=== PATIENT | female | born 1930 | race Caucasian/White ===

== ENCOUNTER 2017-10-15 04:23 | Inpatient (IN) ==
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
--- NOTE | 2017-10-15 06:00 | DI ---
EXAM: XR Left Shoulder Complete, 2 or More Views CLINICAL HISTORY: Physician Notes: Tech Comments: TECHNIQUE: Two or more views of the left shoulder. COMPARISON: No relevant prior studies available. FINDINGS: Limitations: Limited study due to body habitus. Bones/joints: Cortical irregularity in the posterior lateral margin of the left humeral neck suspicious for fracture. No dislocation is identified. Degenerative changes are seen about the acromioclavicular joint. Small calcific/ossific density projecting over the lateral scapula near the glenoid which may represent bone island or overlying soft tissue calcification. Diffuse demineralization of the bones Soft tissues: Unremarkable. IMPRESSION: Suspect fracture of the left humeral neck. Degenerative change. Osteopenia Critical Value Communications 10/15/17 06:12 Verify Receipt Verified receipt with JONNY Cormier in the ER for Dr. Mistry on 10/15 06:10 (-07:00)
[2017-10-15] MEDS ORDERED: Sodium Chloride 0.9% 1,000 ML PRIMARY IV ONE ×2 (06:14→08:38)
[2017-10-15] MEDS ORDERED: KETOROLAC 15 MG/1 ML VIAL IVP ONE (06:14)
[2017-10-15] MEDS ORDERED: INSULIN REGULAR, HUMAN 100 UNIT/1 ML - 3 ML SUBCUT ONE (06:14)
[2017-10-15 06:30] LABS: BLOOD UREA NITROGEN 77 mg/dL (7-22); BUN/CREATININE RATIO 24.06 (6-20); MAGNESIUM 1.8 mg/dL (1.6-2.4); SERUM ALBUMIN 3.5 g/dL (3.5-4.8)
[2017-10-15 06:39] LABS: Hematocrit [HCT] 31.9 % (37.0-47.0); Hemoglobin [HGB] 10.4 g/dL (12.0-16.0); RED BLOOD COUNT 3.35 10^6/uL (4.20-5.40)
[2017-10-15 06:40] LABS: BASOPHILS # (AUTO) 0.06 10*3/UL; BASOPHILS % (AUTO) 0.5 % (0-1); EOSINOPHILS # (AUTO) 0.17 10*3/UL; EOSINOPHILS % (AUTO) 1.5 % (0-8); LYMPHOCYTES # (AUTO) 1.85 10*3/uL; MEAN CORPUSCULAR HEMOGLOBIN 30.9 PG (27-31); MEAN CORPUSCULAR HGB CONC 32.4 g/dL (33-37); MEAN CORPUSCULAR VOLUME 95 FL (81-99); MEAN PLATELET VOLUME 8.1 FL (7.4-12.2); MONOCYTES % (AUTO) 6.9 % (5-15); NEUTROPHILS # (AUTO) 8.68 10*3/UL; NEUTROPHILS % (AUTO) 75.1 % (50-80)
[2017-10-15 06:41] LABS: PLATELET MORPHOLOGY COMMENT NORMAL MORPHOLOGY (NORM); RBC MORPHOLOGY COMMENT SEE COMMENTS (NORM); WBC MORPHOLOGY COMMENT NORMAL MORPHOLOGY (NORM)
[2017-10-15] MEDS ORDERED: LIDOCAINE HCL 2 % 10 ML JELLY URO-JECT TOPICAL PRN ×2 (07:46→08:38)
--- NOTE | 2017-10-15 07:52 | DI ---
EXAM: CT Head Without Intravenous Contrast CLINICAL HISTORY: Physician Notes: Tech Comments: TECHNIQUE: Axial computed tomography images of the head/brain without intravenous contrast. COMPARISON: No relevant prior studies available. FINDINGS: Brain: No acute hemorrhage or mass effect. Focal encephalomalacia in the right parieto-occipital lobe, likely chronic. Focal encephalomalacia in the left occipital lobe, likely chronic infarct. Mild periventricular low density likely chronic small vessel ischemic change. No edema. Midline shift: No midline shift. Ventricles: Diffuse atrophy and compensatory dilatation of the lateral ventricles. Bones/joints: Unremarkable. No acute fracture. Soft tissues: Unremarkable. Sinuses: Mild mucosal thickening in the ethmoid sinuses. Small air- fluid level in the right sphenoid sinus. Mastoid air cells: Unremarkable as visualized. No mastoid effusion. IMPRESSION: No acute intracranial hemorrhage, mass effect or midline shift. Chronic infarcts as described bilaterally. Atrophy and chronic small vessel ischemic change.
--- NOTE | 2017-10-15 07:58 | DI ---
EXAM: CT Cervical Spine Without Intravenous Contrast CLINICAL HISTORY: Physician Notes: Tech Comments: TECHNIQUE: Axial computed tomography images of the cervical spine without intravenous contrast. COMPARISON: No relevant prior studies available. FINDINGS: Vertebrae: No acute fracture or subluxation. Disc space narrowing with degenerative endplate changes at multiple levels and marginal osteophyte formation. Discs/spinal canal/neural foramina: No acute findings. No spinal canal stenosis. Soft tissues: No prevertebral soft tissue abnormality. Lung apices: Unremarkable as visualized. Other findings: IMPRESSION: No acute bony abnormality. Multilevel degenerative disc disease.
--- NOTE | 2017-10-15 08:14 | DI ---
EXAM: CT Chest Without Intravenous Contrast CLINICAL HISTORY: Fall. TECHNIQUE: Axial computed tomography images of the chest without intravenous contrast. COMPARISON: May 15, 2014. FINDINGS: Artifacts: Artifactual degradation of exam due to patient's inability to move arm. Lungs: Patchy groundglass densities and thickening of interlobular septa consistent with vascular congestion/edema. Patchy areas of atelectasis. No focal consolidative process. Pleural space: Small bilateral pleural effusions. No pneumothorax. Heart: Cardiomegaly. Trace pericardial fluid. Mediastinum: Small hiatal hernia. Bones/joints: Acute appearing left humeral head/neck fracture. Degenerative changes in thoracic spine. No dislocation. Soft tissues: Unremarkable. Vasculature: Normal caliber thoracic aorta with atherosclerotic disease. Coronary artery calcifications. Lymph nodes: Subcentimeter mediastinal lymph nodes. IMPRESSION: Acute left humeral head/neck fracture without dislocation. Findings suggestive of vascular congestion/edema and small bilateral pleural effusions. No focal consolidative process. Cardiomegaly. Small pericardial effusion.
[2017-10-15 08:25] LABS: BILIRUBIN,URINE NEGATIVE (NEG); CLARITY,URINE CLOUDY (CLEAR); COLOR,URINE YELLOW (Y); GLUCOSE, URINE (UA) NEGATIVE (NEG); NITRATE,URINE NEGATIVE (NEG); OCCULT BLOOD,URINE MODERATE (NEG); PROTEIN,URINE 100 mg/dl (NEG); UROBILINOGEN,URINE 0.2 EU/dL (0.2)
[2017-10-15 08:35] LABS: BACTERIA,URINE MANY; URINE SAMPLE TYPE CATH SPECIMEN; WBC,URINE >100
[2017-10-15] MEDS ORDERED: NORMAL SALINE 10 ML SYRINGE FLUSH IVP PRN (08:38)
[2017-10-15] MEDS ORDERED: LIDOCAINE W/ SODIUM BICARB 0.5 ML SYR SUBD PRN (08:38)
[2017-10-15] MEDS ORDERED: ONDANSETRON 4 MG/2 ML VIAL IVP PRN (08:38)
[2017-10-15] MEDS ORDERED: DOCUSATE 100 MG CAPSULE PO PRN (08:38)
[2017-10-15] MEDS ORDERED: CALCIUM CARBONATE 500 MG (TUMS) CHEWABLE TABLET PO PRN (08:38)
[2017-10-15] MEDS ORDERED: ACETAMINOPHEN 325 MG TABLET PO PRN (08:38)
[2017-10-15] MEDS ORDERED: HYDROcodone-APAP 5 MG -325 MG TABLET PO PRN (08:38)
[2017-10-15] MEDS ORDERED: Insulin Detemir 300unit/3ml Flexpen SUBCUT SCH ×2 (09:00→13:21)
[2017-10-15] MEDS ORDERED: LABETALOL 100 MG TABLET PO SCH (09:00)
[2017-10-15] MEDS ORDERED: HEPARIN 5000 UNIT/1 ML SUBCUT SCH (09:00)
[2017-10-15] MEDS: Sodium Chloride 0.9% 1,000 ML PRIMARY IV SCH ×2 (10:13→17:58)
[2017-10-15] MEDS: ACETAMINOPHEN 500 MG TABLET PO SCH ×2 (11:21→21:18)
[2017-10-15] MEDS: HYDROmorphone 2 MG/1 ML IVP PRN ×2 (13:10→17:05)
[2017-10-15 16:03] VITALS: BP 122/64; TEMP 97.8; O2SAT 90
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
[2017-10-15 18:20] LABS: BLOOD UREA NITROGEN 78 mg/dL (7-22); BUN/CREATININE RATIO 22.94 (6-20)
[2017-10-15] MEDS ORDERED: Morphine Syringe 300mg/30ml 300 MG/30 ML PCA.SYRING IV SCH (19:45)
[2017-10-16 09:42] VITALS: RESP 14
--- NOTE | 2017-10-16 14:30 | DCSUMMARY ---
Hospitalization Summary Admit Date: 10/15/2017 Discharge Date: 10/16/17 Primary Diagnosis:: Renal Failure, acute Hospital Course: This is an 86 YO female that was [facility] and had a humeral fracture. She was found to be in acute renal failure, hyperkalemia, and oliguric. She had clear failure to thrive and multiple, end stage disease, including dementia, diabetes, high blood pressure, amongst other medical issues. She was clearly in pain, at on an stage of her disease processes and with her power of child protective services social worker, Angela, her sister, we made the decision to stop aggressive medical care and proceed with treatment of primary symptoms. It was known for well that she would of complications of kidney disease, urinary tract infection, dementia, hypertension, diabetes, and high blood pressure. She was placed on morphine for primary control of pain, and she passed at 12:34 PM on 10/16/2017. Exam - Vitals Vital Signs: There are no spontaneous respirations and the patient is unresponsive. Patient Problems - Patient Problem List (1) Acute renal failure Current Visit: Yes Status: Acute Code(s): N17.9 - Acute kidney failure, unspecified Qualifiers: Acute renal failure type: unspecified Qualified Code(s): N17.9 - Acute kidney failure, unspecified Category: Medical (2) Altered mental status Current Visit: Yes Status: Acute Code(s): R41.82 - Altered mental status, unspecified Category: Medical (3) UTI (urinary tract infection) Current Visit: Yes Status: Acute Code(s): N39.0 - Urinary tract infection, site not specified Qualifiers: Urinary tract infection type: acute cystitis Hematuria presence: with hematuria Qualified Code(s): N30.01 - Acute cystitis with hematuria Category: Medical (4) History of CVA (cerebrovascular accident) Current Visit: Yes Status: Acute Code(s): Z86.73 - Personal history of transient ischemic attack (TIA), and cerebral infarction without residual deficits Category: Medical (5) Failure to thrive Current Visit: Yes Status: Acute Qualifiers: Failure to thrive age range: in adult Qualified Code(s): R62.7 - Adult failure to thrive Category: Medical (6) DMII (diabetes mellitus, type 2) Current Visit: Yes Status: Acute Code(s): E11.9 - Type 2 diabetes mellitus without complications Qualifiers: Diabetes mellitus complication status: with hypoglycemia Diabetes mellitus complication detail: without coma Diabetes mellitus detention insulin use: with neurological surgery teacher use Qualified Code(s): E11.649 - Type 2 diabetes mellitus with hypoglycemia without coma; Z79.4 - penitentiary (current) use of insulin; Z79.4 - penitentiary (current) use of insulin; Z79.4 - penitentiary (current) use of insulin; Z79.4 - penitentiary (current) use of insulin Category: Medical (7) Fracture of humerus, left, closed Current Visit: Yes Status: Acute Code(s): S42.302A - Unspecified fracture of shaft of humerus, left arm, initial encounter for closed fracture Qualifiers: Encounter type: initial encounter Humerus Location: proximal Fracture morphology: other fracture Fracture alignment: nondisplaced Qualified Code(s ): S42.295A - Other nondisplaced fracture of upper end of left humerus, initial encounter for closed fracture Category: Medical
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
== END 2017-10-16 12:34 | disposition expired | DRG 948 ==
LOC: ER 04:23 → MED/SURG 07:59
PROVIDERS: ADMIT Family Medicine; ATTEND Family Medicine